=== PATIENT | female | born 1995 | race Caucasian/White ===

== ENCOUNTER 2021-04-08 15:18 | Emergency (ER) | payer OTHER ==
--- OUTSIDE RECORDS SUMMARY | 2021-04-08 15:21 | XMS REPORT | Continuity of Care Document ---
:1995 Author Organization [facility] t Address [address] [place] [address] Care Team Providers Name Role Phone Antoni MERCEDES Primary Care Physician ERICK Attending Clinician Unavailable PODELL Attending Clinician Unavailable Problems Condition Condition Condition Status Onset Resolution Last Treating Co mments Source Name Details Category Date Date Treatment Clinician Date Attention Attention Disease Active 0 Met hodi deficit deficit 15 hyperactiv hyperactiv 00:00: Ho spita ity ity 00 l disorder disorder (ADHD), (ADHD), combined combined type type Anxiety Anxiety Disease Active 0 Methodi with with 03-11 somatizati somatizati 00:00: Ho spita on on 00 l Psychophys Psychophys Disease Active 2020-0 M ethodi iological iological 15 st insomnia insomnia 00:00: Hospit a 00 l History of History of Disease Active 2020-0 M ethodi concussion concussion 03-11 st 00:00: Hospita 00 l Intractabl Intractabl Disease Active 2020-0 M ethodi e chronic e chronic [address] st migraine migraine 00:00: Hospit a without without 00 l aura and aura and with with status status migrainosu migrainosu s s Chronic Chronic Disease Active 2019-0 Methodi anxiety anxiety 01-02 st 00:00: Hospita 00 l Dizziness Dizziness Disease Active 2020-0 Met hodi 01-02 st 00:00: Hospita 00 l Allergies, Adverse Reactions, Alerts Allergy Allergy Status Severity Reaction(s) Onset Inactive Treating Comm ents Source Name Type Date Date Clinician Elijah Batista Active Shortness Of 0 Methodi rousseau ty to Breath 5-08 st adverse 00:00: Hospita reaction 00 l s to drug Metoclop Propensi Active Other (See "Feeling Methodi ramide ty to Comments) 4-[address] Hcl adverse 00:00: was on Hospita reaction 00 fire" l s to drug Sulfa Propensi Active GI Methodi (Sulfona ty to Intolerance 6- st mide adverse 00:00: Hospita Antibiot reaction 00 l ics) s to drug Family History Family Member Diagnosis Comments Start Date Stop Date Source Natural father Migraines Maternal aunt Migraines [facility] ospital Natural mother Granados's esophagus [facility] Natural mother Heart disease [facility] Natural mother Migraines Social History Social Habit Start Date Stop Date Quantity Comments Source History of Cigarette smoker [facility] tobacco use (finding) [facility] Tobacco use and 2020-03-11 2020-03-11 Former user Methodis t exposure 00:00:00 00:00:00 Hospital Alcohol intake 2020-03-11 2020-03-11 Current drinker [facility] 00:00:00 00:00:00 of alcohol Hospital (finding) Sex Assigned At [birth year] [facility] 00:00[facility]00 [facility]:00 Hospital Smoking Status Start Date Stop Date Source Former smoker 2020-03-11 00:00:00 2020-03-11 00:00:00 [facility] Medications Ordered Filled Start Stop Current Ordering Indication Dosage Frequency Signature Comments Components Source Medication Medication Date Date Medication? Clinician (SIG) Name Name promethazin Yes Take 1 Meth an e 7-[address] (PHENERGAN) 00:00: p.o. every Hospita 25 MG 00 6 hours as l tablet needed nausea or headache. propranolol Yes Take 1 po M ethodi [place] (Inderal 7-[address] [place]) 60 MG 00:00: Hospita 24 hr 00 l capsule escitalopra Yes 20mg QD Take 20 mg Methodi m (LEXAPRO) 7-[address] 20 MG 19:38: daily. Hospita tablet 48 l almotriptan 2020- No [id number] 12.5mg Take 1 Methodi (Axert) 03-11 07-[address] 12.5 MG 00:00: 04:59 (12.5 mg Hospi ta tablet 00 :00 total) by l mouth once as needed for migraine. Take 1/2-1 tablet p.o. every 2 hours as needed migraine up to 2 tablets/do ses daily. Max use: 2 days a week nortriptyli 2019-0 Yes Take 1 Meth an ne 6-[address] (Pamelor) 00:00: p.o. Hospita 25 MG 00 nightly l capsule for 2 weeks and then 2 tablets p.o. nightly thereafter dextroamphe 2020-0 Yes 1{tbl} [id number] Take 1 Methodi tamine-amph 6-[id number] etamine 00:00: 3D mouth 3 Hospita (ADDERALL) 00 (three) l 30 mg times a tablet day. multivitami 2020-0 Yes 1{tbl} QD Take 1 Me thodi n 5-[address] (THERAGRAN) 14:46: mouth Hospi ta tablet 46 daily. l Procedures This patient has no known procedures. Plan of Care Planned Activity Planned Date Details Comments Source Future Scheduled Test COVID-19 VACCINE (1) [code = COVID-19 VACCINE (1)] Future Scheduled Test Hepatitis C screening (procedure) [code = 163003218] Future Scheduled Test Screening for [facility] malignant neoplasm of cervix (procedure) [code = 986253599] Future Scheduled Test INFLUENZA VACCINE [facility] [code = INFLUENZA VACCINE] Encounters Start End Encounter Admission Attending Care Care Encounter Source Date/Time Date/Time Type Type Clinicians Facility Department ID 2020-03-11 2020-03-11 Outpatient [facility] [id number] 00:00:00 00:00:00 BRIDGER 199 Method i 2020-03-03 2020-03-03 [facility] [id number] [address] 00:00:00 00:00:00 AISHWARYA 244 Method i 2020-02-18 2020-02-18 [facility] [id number] [address] 00:00:00 00:00:00 AISHWARYA 107 Method i 2020-01-29 2020-01-29 Outpatient [facility] [id number] 00:00:00 00:00:[address] BRIDGER [address] 2020-01-24 2020-01-24 Outpatient ADRIAN, [facility] [id number] [address] 00:00:00 00:00:00 AISHWARYA [address] 2020-01-03 2020-01-03 Outpatient SUAREZ, [facility] [id number] [address] 00:00:00 00:00:[address] BRIDGER [address] Results This patient has no known results.
[2021-04-08 18:53] LABS: Absolute Lymphocytes (CBC) 2.1 K/uL (0.7-4.9); Basophils % 0.4 % (0-1.3); Hematocrit 41.3 % (36.0-45.0); Lymphocytes % 20.4 % (15.3-44.8); MPV 8.8 fL (7.6-11.3); RBC Red Blood Cell Count 4.82 M/uL (3.86-4.86)
[2021-04-08 19:01] LABS: ALT/SGPT 17 U/L (12-78); AST/SGOT 15 U/L (15-37); Albumin 4.2 g/dL (3.4-5.0); Alkaline Phosphatase 81 U/L (45-117); BUN Blood Urea Nitrogen 9 mg/dL (7-18); Bicarbonate 22 mmol/L (21-32); Bilirubin Direct < 0.1 mg/dL (0-0.2); Bilirubin Total 0.2 mg/dL (0.2-1.0); Glucose Level 96 mg/dL (74-106); Lipase 131 U/L (73-393); Potassium 3.4 mmol/L (3.5-5.1); Protein, Total 8.4 g/dL (6.4-8.2); Sodium Level 140 mmol/L (136-145)
[2021-04-08] MEDS ORDERED: NA CHLORIDE 0.9% 500 ML ONE (20:49)
[2021-04-08] MEDS ORDERED: KETOROLAC 30 MG/ML INJ ONE (20:49)
[2021-04-08 21:18] LABS: Urine Bacteria 20-50 /HPF (<20); Urine Mucus 1+ /HPF (NONE SEEN); Urine RBC <5 /HPF (NONE SEEN)
--- NOTE | 2021-04-08 21:36 | RAD REPORT ---
EXAM DESCRIPTION: US - Transvaginal OB - 04/08/2021 9:16 pm CLINICAL HISTORY: pelvic pain COMPARISON: None FINDINGS: Patient declined endovaginal sonography. Transabdominal sonography was performed. No intrauterine gestational sac or sac remnant identifiable. No endometrial or myometrial abnormality seen. Normal size left ovary is seen with normal blood flow within the stroma. No left adnexal abnor mality. Right ovary was obscured by bowel. No blood or fluid in the cul de sac. IMPRESSION: No uterine, left ovarian or left adnexal abnormality seen. Right ovary was obscured by bowel. No right adnexal abnormality identifiable.
[2021-04-08] MEDS ORDERED: MORPHINE 2 MG/ML SYR ONE (23:02)
[2021-04-08] MEDS ORDERED: ONDANSETRON 4 MG/2 ML VIAL ONE (23:03)
[2021-04-08 23:16] LABS: Urine Blood Negative (Negative); Urine Glucose Negative (Negative); Urine Protein Negative (Negative)
--- NOTE | 2021-04-09 00:39 | EDPHYS ---
Physician Documentation [facility] Name: Chelsy Benavides Age: 25 yrs Sex: Female : 1995 Arrival Date: 04/08/2021 Time: 15:20 Bed 21 Private MD: ED Physician Patricio Bhatt HPI: 04/08 19:55 This 25 yrs old Female presents to ER via Ambulatory with complaints of cp Pelvic Pain, Headache, Dizziness. 19:55 The patient presents with abdominal pain in the lower abdomen, and pelvic pain. Onset: cp The symptoms/episode began/occurred 1 year(s) ago, and became worse 1 month(s) ago. 19:55 The symptoms do not radiate. Associated signs and symptoms: Pertinent positives: cp vaginal discharge, Pertinent negatives: nausea and vomiting, anorexia, constipation, diarrhea, dysuria, fever. The symptoms are described as waxing/waning. Severity of pain: in the emergency department the pain is actually worse moderately. Patient reports she is a . Reports lower abdomen and pelvic pain that started 1 year ago and has become worse over past 1 month. Patient reports she receives shot for control method. Patient reports she contacted her OB who recommended evaluation in ED. STOCK LETTERER: 15:33 LMP N/A - Irregular menses jl7 Historical: - Allergies: 15:33 Sulfa (Sulfonamide Antibiotics); jl7 15:33 [id number] Antimigraine Agents; jl7 15:33 Reglan; jl7 - PMHx: 15:33 pre-eclampsia; Bipolar disorder; adhd; jl7 - PSHx: 15:33 section; jl7 - Immunization history:: Adult Immunizations up to date, Client reports receiving the 2nd dose of the Covid vaccine. - Social history:: Smoking status: Patient denies any tobacco usage or history of. ROS: 20:00 Constitutional: Negative for body aches, chills, fever, poor PO intake. cp 20:00 Eyes: Negative for injury, pain, redness, and discharge. cp 20:00 ENT: Negative for ear pain, sore throat, difficulty swallowing, difficulty handling secretions. 20:00 Cardiovascular: Negative for chest pain. 20:00 Respiratory: Negative for cough, shortness of breath, wheezing. 20:00 Abdomen/GI: Positive for abdominal pain, of the right lower quadrant and left lower quadrant, Negative for vomiting, diarrhea, constipation, anorexia. 20:00 Back: Negative for injury or acute deformity, decreased range of motion. 20:00 : Positive for pelvic pain, vaginal discharge, Negative for urinary symptoms, vaginal bleeding. 20:00 Neuro: Negative for altered mental status, headache, weakness. 20:00 All other systems are negative. Exam: 20:05 Constitutional: The patient appears in no acute distress, alert, awake, non-toxic, well cp developed, well nourished. 20:05 Head/Face: Normocephalic, atraumatic. cp 20:05 Eyes: Periorbital structures: appear normal, Conjunctiva: normal, no exudate, no injection, Sclera: no appreciated abnormality, Lids and lashes: appear normal, bilaterally. 20:05 ENT: External ear(s): are unremarkable, Nose: is normal, Mouth: Lips: moist, Oral mucosa: moist, Posterior pharynx: Airway: no evidence of obstruction, patent. 20:05 Chest/axilla: Inspection: normal, Palpation: is normal, no crepitus, no tenderness. 20:05 Cardiovascular: Rate: tachycardic, Rhythm: regular. 20:05 Respiratory: the patient does not display signs of respiratory distress, Respirations: normal, no use of accessory muscles, no retractions, labored breathing, is not present, Breath sounds: are clear throughout, no decreased breath sounds, no stridor, no wheezing. 20:05 Abdomen/GI: Inspection: abdomen appears normal, Bowel sounds: active, all quadrants, Palpation: soft, in all quadrants, severe abdominal tenderness, in the right lower quadrant and left lower quadrant, rebound tenderness, is not appreciated, voluntary guarding, is elicited in the right lower quadrant and left lower quadrant. 20:05 Back: CVA tenderness, is absent. 21:00 : Pelvic Exam: The exam is refused by the patient/guardian. The risks and cp consequences are understood by the patient, Sexual behavior: the patient is sexually active, method of control is depo shot. Vital Signs: 15:30 BP 142 / 100; Pulse 108; Resp 17; Temp 98.8; Pulse Ox 100% ; Weight 56.7 kg; Height 5 jl7 ft. 3 in. (160.02 cm); Pain 7/10; 08/13 00:54 BP 132 / 80; Pulse 98; Resp 18; Pulse Ox 98% ; ea 04/08 15:30 Body Mass Index 22.14 (56.70 kg, 160.02 cm) jl7 MDM: 04/08 19:30 Patient medically screened. cp 20:00 Differential diagnosis: Ovarian Torsion, Pelvic Inflammatory Disease, Pyelonephritis, cp Ureterolithiasis, urinary tract infection, STD, appendicitis. 04/09 00:38 Data reviewed: vital signs, nurses notes, lab test result(s), radiologic studies, CT cp scan, ultrasound. 00:38 Counseling: I had a detailed discussion with the patient and/or guardian regarding: the cp historical points, exam findings, and any diagnostic results supporting the discharge/admit diagnosis, lab results, radiology results. Response to treatment: the patient's symptoms have markedly improved after treatment, Pain markedly improved. Discussed results of labs and radiology studies. Will discharge to home and recommend f/u with STOCK LETTERER. 04/08 16:10 Order name: Urine Microscopic Only 04/08 16:11 Order name: Urine Microscopic Only; Complete Time: 21:34 EDMA 04/08 21:34 Interpretation: Normal except: UBACT 20-50; SQEPI 5-10. cp 04/08 16:22 Order name: Basic Metabolic Panel; Complete Time: 19:50 cp 04/08 19:50 Interpretation: Normal except: K 3.4; CL 111; GFR 88. 04/08 16:22 Order name: CBC with Diff; Complete Time: 19:50 cp 04/08 19:50 Interpretation: Normal except: VIKKI% 74.0. 04/08 16:22 Order name: Hepatic Function; Complete Time: 19:50 cp 04/08 21:35 Interpretation: Normal except: TP 8.4; GLOB 4.2; A/G 1.0. cp 04/08 16:22 Order name: Lipase; Complete Time: 19:50 cp 04/08 19:51 Order name: Transvaginal OB US; Complete Time: 21:44 cp 04/08 21:19 Order name: Urine Culture EDMA 04/08 21:45 Order name: CT Abd/Pelvis - IV Contrast Only cp 04/08 23:16 Order name: Urine --Ancillary (enter results); Complete Time: 00:33 bb 04/08 23:16 Order name: Urine Dipstick-Ancillary; Complete Time: 00:33 EDMS 04/09 00:33 Interpretation: Normal except: UESTR Trace. cp 04/08 16:10 Order name: Urine Dipstick-Ancillary (obtain specimen); Complete Time: 22:24 kb 04/08 16:10 Order name: Urine Test (obtain specimen); Complete Time: 22:24 kb 04/08 16:22 Order name: IV Saline Lock; Complete Time: 18:30 cp 04/08 16:22 Order name: Labs collected and sent; Complete Time: 18:30 cp Administered Medications: 04/08 20:35 Drug: NS 0.9% 500 ml Route: IV; Rate: bolus; Site: left antecubital; [facility] 21:33 Follow up: Response: No adverse reaction [facility] 04/09 00:55 Follow up: Response: No adverse reaction; IV Status: Completed infusion; IV Intake: ea 500ml 04/08 20:36 Drug: Ketorolac 15 mg Route: IVP; Site: left antecubital; [facility] 21:33 Follow up: Response: No adverse reaction [facility] 22:45 Drug: Zofran (Ondansetron) 4 mg Route: IVP; Site: left antecubital; 23:16 Follow up: Response: No adverse reaction 22:48 Drug: morphine 2 mg {Note: rass 0.} Route: IVP; Site: left antecubital; 23:16 Follow up: Response: No adverse reaction; Pain is decreased; RASS: Alert and Calm (0) bb Disposition: 04/09 07:51 Co-signature as Attending Physician, Patricio Bhatt MD I agree with the assessment and kdr plan of care. Disposition Summary: 04/09/21 00:38 Discharge Ordered Location: Home cp Problem: an ongoing problem cp Symptoms: have improved cp Condition: Stable cp Diagnosis - Lower abdominal pain, unspecified cp Followup: cp - With: Iris Zeng MD - When: 2 - 3 days - Reason: Recheck today's complaints Discharge Instructions: - Discharge Summary Sheet cp - Abdominal Pain, Adult cp - Pelvic Pain, Female cp Forms: - Medication Reconciliation Form cp - Thank You Letter cp - Antibiotic Education cp - Prescription Opioid Use cp Prescriptions: - Diclofenac Sodium 75 mg Oral Tablet Sustained Release - take 1 tablet by ORAL route 2 times per day; 30 tablet; Refills: 0, Product cp Selection Permitted Signatures: Dispatcher [employer] EDNatasha Che, ODINC TRUCK DESPATCHER-Patricio Dukes MD MD kdr Ballard, Brenda RN RN bb Jose Townsend PA PA cp Leal, Jahala RN RN jl7 Fernanda Gregory RN RN lh3 Payton Moore RN ea Corrections: (The following items were deleted from the chart) 04/08 19:51 19:50 Normal except. cp cp 22:23 19:50 Pelvic Exam Setup ordered. cp bb
--- NOTE | 2021-04-09 00:39 | ER ---
Nurse's Notes [facility] Name: Chelsy Benavides Age: 25 yrs Sex: Female : 1995 Arrival Date: 04/08/2021 Time: 15:20 Bed 21 Private MD: Diagnosis: Lower abdominal pain, unspecified Presentation: 04/08 15:30 Chief complaint: Patient states: Lower abdominal pain x 1 month, called OB today and jl7 they told me to come here; reports the pain is causing migraines and dizziness and nausea, last BM today and normal. Coronavirus screen: Client denies travel out of the [place] in the last 14 days. At this time, the client does not indicate any symptoms associated with coronavirus-19. Ebola Screen: No symptoms or risks identified at this time. Initial Sepsis Screen: Does the patient meet any 2 criteria? No. Patient's initial sepsis screen is negative. Does the patient have a suspected source of infection? No. Patient's initial sepsis screen is negative. Risk Assessment: Do you want to hurt yourself or someone else? Patient reports no desire to harm self or others. Onset of symptoms was March 03, 2021. 15:30 Method Of Arrival: Ambulatory [facility] 15:30 Acuity: EMIL 3 jl7 MEDICAL PARASITOLOGIST: 15:33 LMP N/A - Irregular menses jl7 Historical: - Allergies: 15:33 Sulfa (Sulfonamide Antibiotics); jl7 15:33 [id number] Antimigraine Agents; jl7 15:33 Reglan; jl7 - PMHx: 15:33 pre-eclampsia; Bipolar disorder; adhd; jl7 - PSHx: 15:33 section; jl7 - Immunization history:: Adult Immunizations up to date, Client reports receiving the 2nd dose of the Covid vaccine. - Social history:: Smoking status: Patient denies any tobacco usage or history of. Screenin:30 Abuse screen: Denies threats or abuse. Nutritional screening: No deficits noted. bb Tuberculosis screening: No symptoms or risk factors identified. Fall Risk None identified. Assessment: 22:30 General: Appears in no apparent distress. uncomfortable, Behavior is calm, cooperative. bb Pain: Complains of pain in pelvis. Neuro: Level of Consciousness is awake, alert, obeys commands, Oriented to person, place, time, situation. Cardiovascular: Capillary refill < 3 seconds Patient's skin is warm and dry. Respiratory: Respiratory effort is even, unlabored. GI: Abdomen is non-distended. : Reports pain in pelvic area. Derm: Skin is pink, warm \T\ dry. Musculoskeletal: Circulation, motion, and sensation intact. 04/09 00:54 Reassessment: Patient and/or family updated on plan of care and expected duration. Pain ea level reassessed. Patient is alert, oriented x 3, equal unlabored respirations, skin warm/dry/pink. Discharge instruction given to patient verbalized the understanding of instruction, pt left ED ambulatory tolerating well. Vital Signs: 04/08 15:30 BP 142 / 100; Pulse 108; Resp 17; Temp 98.8; Pulse Ox 100% ; Weight 56.7 kg; Height 5 jl7 ft. 3 in. (160.02 cm); Pain 7/10; 04/09 00:54 BP 132 / 80; Pulse 98; Resp 18; Pulse Ox 98% ; ea 04/08 15:30 Body Mass Index 22.14 (56.70 kg, 160.02 cm) [facility] ED Course: 04/08 15:20 Patient arrived in ED. as 15:33 Triage completed. jl7 15:33 Arm band placed on right wrist. Patient placed in waiting room, Patient notified of [facility] wait time. 16:23 Jose Townsend PA is PHCP. cp 16:23 Patricio Bhatt MD is Attending Physician. cp 20:20 Fernanda Gregory, CHACHA is Primary Nurse. lh3 21:16 Transvaginal OB US In Process Unspecified. EDMS 22:30 Patient has correct armband on for positive identification. Adult w/ patient. bb 22:30 No provider procedures requiring assistance completed. bb 23:17 CT Abd/Pelvis - IV Contrast Only In Process Unspecified. EDMS 04/09 00:36 Iris Zeng MD is Referral Physician. cp 00:54 IV discontinued, intact, bleeding controlled, No redness/swelling at site. Pressure ea dressing applied. Administered Medications: 04/08 20:35 Drug: NS 0.9% 500 ml Route: IV; Rate: bolus; Site: left antecubital; 3 21:33 Follow up: Response: No adverse reaction 3 04/09 00:55 Follow up: Response: No adverse reaction; IV Status: Completed infusion; IV Intake: ea 500ml 04/08 20:36 Drug: Ketorolac 15 mg Route: IVP; Site: left antecubital; lh3 21:33 Follow up: Response: No adverse reaction lh3 22:45 Drug: Zofran (Ondansetron) 4 mg Route: IVP; Site: left antecubital; bb 23:16 Follow up: Response: No adverse reaction bb 22:48 Drug: morphine 2 mg {Note: rass 0.} Route: IVP; Site: left antecubital; bb 23:16 Follow up: Response: No adverse reaction; Pain is decreased; RASS: Alert and Calm (0) bb Intake: 04/09 00:55 IV: 500ml; Total: 500ml. ea Outcome: 00:38 Discharge ordered by MD. kizzy 00:52 Patient left the ED. ea 00:53 Discharged to home ambulatory, with family. ea 00:53 Condition: stable 00:53 Discharge instructions given to patient, Instructed on discharge instructions, follow up and referral plans. medication usage, Demonstrated understanding of instructions, follow-up care, medications, Prescriptions given X 1. Signatures: Dispatcher [employer] Patricia Vann Brenda, RN RN Jose Collins PA PA cp Leal, Jahala, RN RN jl7 Payton Moore RN RN ea Hardee, Latisha RN RN lh3
[2021-04-09 01:15] VITALS: BP 142/100; TEMP 98.8; O2SAT 100
--- NOTE | 2021-04-09 21:05 | RAD REPORT ---
EXAM DESCRIPTION: CT Abdomen and Pelvis With Intravenous Contrast CLINICAL HISTORY: The patient is 25 years old and is Female; abdomen/pelvic pain TECHNIQUE: Axial computed tomography images of the abdomen and pelvis with intravenous contrast. S agittal and coronal reformatted images were created and reviewed. This CT exam was performed using one or more of the following dose reduction techniques: automated exposure control, adjustment of t he mA and/or kV according to patient size, and/or use of iterative reconstruction technique. COMPARISON: No relevant prior studies available. FINDINGS: Lung bases: Unremarkable. No mass. No consolidation. ABDOMEN: Liver: Unremarkable. No mass. Gallbladder and bile ducts: Unremarkable. No calcified stones. No ductal dilation. Pancreas: Unremarkable. No mass. No ductal dilation. Spleen: Unremarkable. No splenomegaly. Adrenals: Unremarkable. No mass. Kidneys and ureters: Unremarkable. No solid mass. No hydronephrosis. Stomach and bowel: Unremarkable. No obstruction. No mucosal thickening. PELVIS: Appendix: No findings to suggest acute appendicitis. Bladder: Suggestion of bladder wall thickening, but the bladder is decompressed limiting evaluati on. Reproductive: Prominent and enhancing pelvic/ovarian vasculature. ABDOMEN and PELVIS: Intraperitoneal space: Unremarkable. No free air. No significant fluid collection. Bones/joints: No acute fracture. No dislocation. Soft tissues: Unremarkable. Vasculature: See above. Lymph nodes: Unremarkable. No enlarged lymph nodes. IMPRESSION: 1. No acute finding. 2. Prominent and enhancing pelvic/ovarian vasculature. Correlate with any concern for pelvic jarred estion syndrome. 3. Suggestion of bladder wall thickening, but the bladder is decompressed limiting evaluation. Co rrelate with any concern for cystitis. Electronically signed by: José Miguel Huang MD 04/09/2021 12:08 AM CDT Due to temporary technical issues with the PACS/Fluency reporting system, reports are being signed by the in house radiologists without review as a courtesy to insure prompt reporting. The interpreting radiologist is fully responsible for the content of the report.
== END 2021-04-09 00:52 | disposition home or self-care (01) ==
LOC: ER 15:18
DX: R10.30 Lower abdominal pain, unspecified (principal); Z88.2 Allergy status to sulfonamides; Z88.8 Allergy status to other drugs, medicaments and biological substances
CPT/HCPCS: 96361; 87088; 85025; 87086; 80048; 36415; 81025; 80076; 83690; 74177; 76817; 96375; 96374; 99283; Q9967; J2270; J7040; J2405; 81003; 81015

== ENCOUNTER 2022-05-03 16:33 | Emergency (ER) | payer OTHER ==
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
--- NOTE | 2022-05-03 17:38 | EDPHYS ---
Physician Documentation [facility] Name: Chelsy Benavides Age: 26 yrs Sex: Female : 1995 Arrival Date: 05/03/2022 Time: 16:35 Bed Waiting Private MD: Ron Velasco ED Physician Neri Aggarwal HPI: 05/03 17:15 This 26 yrs old Female presents to ER via Ambulatory with complaints of Headache - cp migraine after botox. 17:15 The patient complains of pain to the forehead. The patient describes the headache as cp constant, tightening, like "rubber bands around head". 17:30 Onset: The symptoms/episode began/occurred since having Botox injections performed at [facility] on 04-27-2022. Associated signs and symptoms: Pertinent positives: nausea, vomiting, Pertinent negatives: fever, neck stiffness, vision changes, weakness. Severity of symptoms: in the emergency department the pain is unchanged, despite home interventions. Headache History: Other reports different from previous headaches in that this headache is lasting longer. 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 - Social history:: Smoking status: Patient denies any tobacco usage or history of. Patient/guardian denies using alcohol. ROS: 17:20 Eyes: Negative for injury, pain, redness, and discharge. cp 17:20 Constitutional: Negative for body aches, chills, fever, poor PO intake. 17:20 Cardiovascular: Negative for chest pain, palpitations. 17:20 Respiratory: Negative for cough, shortness of breath, wheezing. 17:20 Abdomen/GI: Positive for nausea and vomiting. 17:20 Neuro: Positive for headache, Negative for altered mental status, dizziness, numbness, weakness. 17:20 All other systems are negative. Exam: 17:25 Head/Face: Normocephalic, atraumatic. cp 17:25 Constitutional: The patient appears in no acute distress, alert, awake, non-diaphoretic, non-toxic, well developed, well nourished. 17:25 Eyes: Periorbital structures: appear normal, Pupils: equal, round, and reactive to light and accomodation, Extraocular movements: intact throughout, Conjunctiva: normal, no exudate, no injection, Sclera: no appreciated abnormality, Lids and lashes: appear normal, bilaterally. 17:25 ENT: External ear(s): are unremarkable, Nose: is normal, Mouth: Lips: moist, Oral mucosa: moist, Posterior pharynx: Airway: no evidence of obstruction, patent. 17:25 Neck: ROM/movement: is normal, is supple, without pain, no range of motions limitations. 17:25 Chest/axilla: Inspection: normal. 17:25 Cardiovascular: Rate: normal, Rhythm: regular, Heart sounds: murmur, not appreciated. 17:25 Respiratory: the patient does not display signs of respiratory distress, Respirations: normal, no use of accessory muscles, no retractions, labored breathing, is not present, Breath sounds: are clear throughout, no decreased breath sounds, no stridor, no wheezing. 17:25 Abdomen/GI: Exam negative for discomfort, distension, guarding, Inspection: abdomen appears normal. 17:25 Neuro: Orientation: to person, place \\T\\ time. Mentation: is normal, Motor: moves all fours, strength is normal, Sensation: is normal, Gait: is steady, at a normal pace, without difficulty. Vital Signs: 17:12 BP 124 / 85; Pulse 93; Resp 18; Temp 98.7(O); Pulse Ox 99% on R/A; Weight 47.63 kg; ld1 Height 5 ft. 3 in. (160.02 cm); Pain 10/10; 17:12 Body Mass Index 18.60 (47.63 kg, 160.02 cm) ld1 MDM: 05/03 17:19 Order name: Urine Dipstick-Ancillary (obtain specimen) cp 05/03 17:19 Order name: Urine Test (obtain specimen) cp Administered Medications: No medications were administered Disposition: 18:47 Co-signature as Attending Physician, Neri Aggarwal MD. rn Disposition Summary: 05/03/22 17:38 Eloped Disposition: post triage evaluation and consult ld1 Reason: wait time ld1 Signatures: Dispatcher [employer] EDNeri Byrne MD MD rn Page, Corey, PA PA cp Dibbern, Lauren, RN RN ld1 Corrections: (The following items were deleted from the chart) 05/02 17:20 Constitutional: Negative for body aches, chills, fever, poor PO intake, cp cp 05/03 17:05/02 17:20 Cardiovascular: Negative for chest pain, palpitations, cp cp 05/03 17:05/02 17:20 Respiratory: Negative for cough, shortness of breath, wheezing, cp cp 05/03 17:05/02 17:20 Abdomen/GI: Positive for nausea and vomiting, cp cp 05/03 17:05/02 17:20 Neuro: Positive for headache, Negative for altered mental status, cp dizziness, numbness, weakness, cp 05/03 17:05/02 17:20 Eyes: Negative for injury, pain, redness, and discharge, cp cp 05/03 17:05/02 17:20 All other systems are negative, cp cp
--- NOTE | 2022-05-03 17:38 | ER ---
Nurse's Notes [facility] Name: Chelsy Benavides Age: 26 yrs Sex: Female : 1995 Arrival Date: 05/03/2022 Time: 16:35 Bed Waiting Private MD: Ron Velasco Diagnosis: Presentation: 05/03 17:12 Chief complaint: Patient states: Botox at [facility] on april 27 for chronic ld1 migraines. Pt reporting severe ongoing migraine since botox was injected. "Severe ongoing painful migraine." C/O pain, dizziness, nausea. Coronavirus screen: At this time, the client does not indicate any symptoms associated with coronavirus-19. Ebola Screen: No symptoms or risks identified at this time. Initial Sepsis Screen: Does the patient meet any 2 criteria? No. Patient's initial sepsis screen is negative. Does the patient have a suspected source of infection? No. Patient's initial sepsis screen is negative. Risk Assessment: Do you want to hurt yourself or someone else? Patient reports no desire to harm self or others. Onset of symptoms was May 03, 2022. 17:12 Method Of Arrival: Ambulatory ld1 17:12 Acuity: EMIL 3 ld1 Triage Assessment: 17:12 Headache History: The patient has had previous headaches and this one is similar to ld1 previous episodes. General: Appears in no apparent distress. comfortable, Behavior is calm, cooperative, appropriate for age. Pain: Complains of pain in face Pain does not radiate. Pain currently is 10 out of 10 on a pain scale. Quality of pain is described as throbbing, Pain began suddenly, Is continuous. EENT: No signs and/or symptoms were reported regarding the EENT system. Neuro: Level of Consciousness is awake, alert, obeys commands, Oriented to person, place, time, situation. Cardiovascular: Capillary refill < 3 seconds Patient's skin is warm and dry. Respiratory: Airway is patent Respiratory effort is even, unlabored. GI: Abdomen is flat, non-distended. : No signs and/or symptoms were reported regarding the genitourinary system. Derm: No signs and/or symptoms reported regarding the dermatologic system. Musculoskeletal: No signs and/or symptoms reported regarding the musculoskeletal system. 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 - Social history:: Smoking status: Patient denies any tobacco usage or history of. Patient/guardian denies using alcohol. Vital Signs: 17:12 BP 124 / 85; Pulse 93; Resp 18; Temp 98.7(O); Pulse Ox 99% on R/A; Weight 47.63 kg; ld1 Height 5 ft. 3 in. (160.02 cm); Pain 10/10; 17:12 Body Mass Index 18.60 (47.63 kg, 160.02 cm) ld1 ED Course: 16:35 Patient arrived in ED. am2 16:35 Ron Velasco MD is Private Physician. am2 17:10 Jose Townsend PA is PHCP. cp 17:11 Neri Aggarwal MD is Attending Physician. cp 17:12 Arm band placed on right wrist. ld1 17:14 Triage completed. ld1 Administered Medications: No medications were administered Outcome: 17:38 Patient left the ED. ld1 Signatures: Jose Townsend PA PA Lizette Gay am2 Jessica Yanez, RN RN ld1
[2022-05-03 19:51] VITALS: BP 124/85; TEMP 98.7; O2SAT 99
== END 2022-05-03 17:38 | disposition left against medical advice (07) ==
LOC: ER 16:33
DX: Z02.9 Encounter for administrative examinations, unspecified (principal)
CPT/HCPCS: 99281